=== PATIENT | female | born 2005 | race Caucasian/White ===

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

== ENCOUNTER 2023-08-09 23:15 | Emergency (ER) | payer MEDICAID ==
[~2023-08-09] VITALS: Ht 152.4 cm; Wt 68.0 kg
[~2023-08-09 23:15] MED LIST changes: +NAPR-686 PO
[2023-08-09 23:32] VITALS: BP_SYST 115; PULSE 75; RESP 16; TEMP 97.5; O2SAT 98
[2023-08-10 00:01] VITALS: BP_SYST 110; PULSE 71; RESP 16; TEMP 98.2; O2SAT 99
== END 2023-08-10 00:01 | disposition home or self-care (01) ==
LOC: SED 23:15
DX: R10.33 Periumbilical pain (principal); Z79.899 Other long term (current) drug therapy
CPT/HCPCS: 99281